=== PATIENT | male | born 1980 | race Caucasian/White ===

== ENCOUNTER 2017-12-05 21:16 | Emergency (ER) | payer BC ==
[~2017-12-05] VITALS: Ht 177.8 cm; Wt 107.5 kg
[2017-12-05 21:20] VITALS: TEMP 36.8; Ht 177.8 cm; Wt 107.5 kg
[2017-12-05] MEDS ORDERED: SODIUM CHLORIDE 0.9% 1000ML 1,000 ML IV STA (21:42)
[2017-12-05] MEDS ORDERED: FAMOTIDINE 20 MG TAB PO ONE (21:45)
--- NOTE | 2017-12-05 21:46 | EMERGENCY ROOM VISIT NOTE ---
History Report prepared by Iván: Tiffanie Rice Under the Supervision of: Dr. Gilda Hooker M.D. 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 Per the police radio dispatcher at the bedside, the staff at the bar contacted them with concerns the patient got into his car and drove under the influence. The patient states he drove home, had "3 Ativan and half a bottle of alcohol" as soon as he walked into the door. Shortly thereafter the police apparently arrived at his door. Patient admits that he drinks a significant amount of alcohol frequently. He does not feel that he is significantly intoxicated above his baseline. He has some "horrible chest pain" that began about 3 days ago and everything worsens his pain including taking a deep breath, exerting himself and lying flat. The pain radiates down to his left arm and a little to the left side of his back. The pain has been persistent over the last several days. 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 A total of 10 systems reviewed and were otherwise negative. Review of systems is somewhat limited secondary to intoxication Past Medical & Surgical Medical Problems: (1) No significant medical problems Family History No pertinent family history Social History Smoking Status: Current Some Day Smoker Smokeless Tobacco Use: Unknown Alcohol Use: occasionally Marital Status: single Housing Status: lives with family Occupation Status: employed Current/Historical Medications Scheduled Fluoxetine (Prozac), Unknown Dose PO DAILY [Blood Pressure Med], Unknown Dose PO DAILY Allergies Coded Allergies: No Known Allergies (Unverified , 12/05/17) Physical Exam Vital Signs Date Time Temp Pulse Resp B/P (MAP) Pulse Ox O2 Delivery O2 Flow Rate FiO2 12/05/17 23:18 95 151/71 94 Room Air 12/05/17 22:36 88 Room Air 12/05/17 22:36 93 Nasal Cannula 2.0 12/05/17 22:31 104 20 162/90 92 Room Air 12/05/17 21:39 114 12/05/17 21:20 36.8 115 18 151/95 98 Room Air Physical Exam Vital signs reviewed. General: Well-appearing intoxicated male, in no significant distress. HEENT: No scleral icterus, PERRLA, neck supple. Atraumatic. Cardiovascular: Tachycardic rate and rhythm, no extra sounds.No reproducible chest tenderness. Pulmonary: Clear to auscultation bilaterally, normal work of breathing. Abdomen: Soft, nontender, nondistended, positive bowel sounds. Musculoskeletal: Atraumatic, no peripheral edema. Neurologic: Patient awake alert and oriented x 3, slurred speech but able to follow commands. Skin: Warm, dry, no rash Medical Decision & Procedures ER Provider Diagnostic Interpretation: Radiology results as stated below per my review and radiologist interpretation: CHEST ONE VIEW PORTABLE HISTORY: Atypical chest pain COMPARISON: Chest 06/16/2011. FINDINGS: The lungs are clear. Cardiac silhouette is normal in size. No pleural effusions. No pneumothorax. IMPRESSION: No acute process. Electronically signed by: Aidan Goldman M.D. 12/05/2017 10:15 PM Dictated Date/Time: 12/05/2017 10:12 PM Laboratory Results 12/05/17 21:50 Red Blood Count 5.82, Mean Corpuscular Volume 86.8, Mean Corpuscular Hemoglobin 30.4, Mean Corpuscular Hemoglobin Concent 35.0, Mean Platelet Volume 10.0, Neutrophils (%) (Auto) 69.1, Lymphocytes (%) (Auto) 24.0, Monocytes (%) (Auto) 5.3, Eosinophils (%) (Auto) 0.8, Basophils (%) (Auto) 0.4, Neutrophils # (Auto) 7.87, Lymphocytes # (Auto) 2.73, Monocytes # (Auto) 0.60, Eosinophils # (Auto) 0.09, Basophils # (Auto) 0.04 12/05/17 21:50 Test 12/05/17 21:50 12/05/17 21:59 White Blood Count 11.37 K/uL (4.8-10.8) Red Blood Count 5.82 M/uL (4.7-6.1) Hemoglobin 17.7 g/dL (14.0-18.0) Hematocrit 50.5 % (42-52) Mean Corpuscular Volume 86.8 fL (80-100) Mean Corpuscular Hemoglobin 30.4 pg (25-34) Mean Corpuscular Hemoglobin Concent 35.0 g/dl (32-36) Platelet Count 289 K/uL (130-400) Mean Platelet Volume 10.0 fL (7.4-10.4) Neutrophils (%) (Auto) 69.1 % Lymphocytes (%) (Auto) 24.0 % Monocytes (%) (Auto) 5.3 % Eosinophils (%) (Auto) 0.8 % Basophils (%) (Auto) 0.4 % Neutrophils # (Auto) 7.87 K/uL (1.4-6.5) Lymphocytes # (Auto) 2.73 K/uL (1.2-3.4) Monocytes # (Auto) 0.60 K/uL (0.11-0.59) Eosinophils # (Auto) 0.09 K/uL (0-0.5) Basophils # (Auto) 0.04 K/uL (0-0.2) RDW Standard Deviation 47.1 fL (36.4-46.3) RDW Coefficient of Variation 15.0 % (11.5-14.5) Immature Granulocyte % (Auto) 0.4 % Immature Granulocyte # (Auto) 0.04 K/uL (0.00-0.02) Anion Gap 14.0 mmol/L (3-11) Est Creatinine Clear Calc Drug Dose 103.5 ml/min Estimated GFR () 89.0 Estimated GFR (Non- 76.8 BUN/Creatinine Ratio 6.8 (10-20) Calcium Level 8.0 mg/dl (8.5-10.1) Total Bilirubin 0.4 mg/dl (0.2-1) Direct Bilirubin mg/dl (0-0.2) Aspartate Amino Transf (AST/SGOT) 75 U/L (15-37) Alanine Aminotransferase (ALT/SGPT) 58 U/L (12-78) Alkaline Phosphatase 135 U/L (45-117) Troponin I 0.030 ng/ml (0-0.045) Total Protein 6.6 gm/dl (6.4-8.2) Albumin 3.6 gm/dl (3.4-5.0) Chemistry Specimen Hemolysis Ethyl Alcohol mg/dL 356.0 mg/dl (0-3) Urine Color YELLOW Urine Appearance CLEAR (CLEAR) Urine pH 6.5 (4.5-7.5) Urine Specific [place] 1.009 (1.000-1.030) Urine Protein NEG (NEG) Urine Glucose (UA) NEG (NEG) Urine Ketones NEG (NEG) Urine Occult Blood NEG (NEG) Urine Nitrite NEG (NEG) Urine Bilirubin NEG (NEG) Urine Urobilinogen NEG (NEG) Urine Leukocyte Esterase NEG (NEG) Urine Opiates Screen NEG (NEG) Urine Methadone, Qualitative NEG (NEG) Urine Barbiturates NEG (NEG) Urine Phencyclidine (PCP) Level NEG (NEG) Ur Amphetamine/Methamphetamine NEG (NEG) MDMA (Ecstasy) Screen NEG (NEG) Urine Benzodiazepines Screen NEG (NEG) Urine Cocaine Metabolite NEG (NEG) Urine Marijuana (THC) NEG (NEG) Laboratory results per my review. Medications Administered Medications (Trade) Dose Ordered Sig/Cheryl Route Start Time Stop Time Status Last Admin Dose Admin Famotidine (Pepcid Tab) 20 mg NOW ONCE PO 12/05/17 21:45 12/05/17 21:47 DC 12/05/17 21:58 20 MG Sodium Chloride 1,000 ml @ 999 mls/hr Q1H1M STAT IV 12/05/17 21:42 12/05/17 22:42 DC 12/05/17 21:57 999 MLS/HR ECG Per My Interpretation Indication: SOB/dyspnea Rate (beats per minute): 104 Rhythm: sinus tachycardia Findings: no acute ischemic change, no ectopy ED Course 2135: Past medical records reviewed. The patient was evaluated in room B11. A complete history and physical examination was performed. 2141: Ordered Sodium Chloride 1000 ml @ 999 mls/hr IV 2144: Ordered Pepcid Tab 20 mg PO Medical Decision The differential diagnosis of the patient's presentation includes alcohol ingestion, illicit drug use, trauma, and dehydration. This patient was evaluated and appeared to be in no significant distress. IV access was obtained and laboratory work was drawn. The patient was placed on the hotel houseman and found to be slightly tachycardic. Blood alcohol is 356. Patient's cardiac enzymes are negative. EKG reveals no evidence of acute ischemia. Patient was given Pepcid 20 mg p.o. He was hydrated with 1 L of normal saline solution. Patient stated he has no one to come pick him up. He states his 4-year-old daughter is at home with his mother. He does not have any friends. Patient will be signed out to Dr. Parra at the change of shift, pending a more sober state. Medication Reconcilliation Current Medication List: was personally reviewed by me Blood Pressure Screening Patient's blood pressure: Elevated blood pressure Blood pressure disposition: Elevated BP felt to be situational Impression Primary Impression: Alcohol intoxication Additional Impression: Non-cardiac chest pain Scribe Attestation The scribe's documentation has been prepared under my direction and personally reviewed by me in its entirety. I confirm that the note above accurately reflects all work, treatment, procedures, and medical decision making performed by me. Departure Information Dispostion Still a Patient Referrals No Doctor, Assigned (PCP) Patient Instructions My [facility] Health Problem Qualifiers
[2017-12-05] MEDS ORDERED: FLUO10CA48 PO (21:55)
[2017-12-05] MEDS ORDERED: Blood Pressure Med PO (21:55)
[2017-12-05 22:05] LABS: BASO % 0.4 %; BASO ABS # 0.04 K/uL (0-0.2); EOS % 0.8 %; EOS ABS # 0.09 K/uL (0-0.5); HEMATOCRIT 50.5 % (42-52); HEMOGLOBIN 17.7 g/dL (14.0-18.0); IG# 0.04 K/uL (0.00-0.02); LYMPH ABS # 2.73 K/uL (1.2-3.4); MEAN CELL VOLUME 86.8 fL (80-100); MEAN CORPUSCULAR HEMOGLOBIN 30.4 pg (25-34); MONO % 5.3 %; NEUT % 69.1 %; NEUT ABS # 7.87 K/uL (1.4-6.5); PLATELET COUNT 289 K/uL (130-400); RED CELL DISTRIBUTION WIDTH SD 47.1 fL (36.4-46.3); WHITE BLOOD COUNT 11.37 K/uL (4.8-10.8)
--- NOTE | 2017-12-05 22:16 | DIAGNOSTIC IMAGING REPORT ---
CHEST ONE VIEW PORTABLE HISTORY: Atypical chest pain COMPARISON: Chest 06/16/2011. FINDINGS: The lungs are clear. Cardiac silhouette is normal in size. No pleural effusions. No pneumothorax. IMPRESSION: No acute process. Electronically signed by: Aidan Goldman M.D. 12/05/2017 10:15 PM Dictated Date/Time: 12/05/2017 10:12 PM
[2017-12-05 22:36] VITALS: O2SAT 93
[2017-12-05 22:47] LABS: ALBUMIN 3.6 gm/dl (3.4-5.0); CREATININE 1.2 mg/dl (0.60-1.40); POTASSIUM 3.2 mmol/L (3.5-5.1); TOTAL PROTEIN 6.6 gm/dl (6.4-8.2)
--- NOTE | 2017-12-06 05:00 | EMERGENCY ROOM VISIT NOTE ---
ED Visit Note First contact with patient: 01:32 This patient was signed out to me at change of shift awaiting sobriety He is sleeping at this time. 0500: I spoke with the patient at this time. His is coming to get him and will transport him home. I encouraged him to avoid such excessive alcohol use in the future. He was asked to follow-up with his PCP if he is any additional symptoms.
[2017-12-06 05:25] VITALS: BP 129/62; PULSE 100; O2SAT 94
== END 2017-12-06 05:27 | disposition home or self-care (01) ==
LOC: C.EDB 21:18
DX: R07.89 Other chest pain (principal); F10.129 Alcohol abuse with intoxication, unspecified; Y90.8 Blood alcohol level of 240 mg/100 ml or more; F17.200 Nicotine dependence, unspecified, uncomplicated

== ENCOUNTER → 2017-12-05 | Outpatient (CLI) | payer OTHER ==
[~2017-12-05] MED LIST: Blood Pressure Med PO; FLUO10CA48 PO
== END | disposition home or self-care (01) ==
LOC: C.LAB 21:34
DX: Z02.83 Encounter for blood-alcohol and blood-drug test (principal)